=== PATIENT | female | born 1970 | race Two or more races ===

== ENCOUNTER → 2021-07-01 | Outpatient (CLI) | payer OTHER ==
--- NOTE | 2021-07-01 11:27 | RAD ---
EXAMINATION: MRCP W/O CONTRAST. TECHNIQUE: Multiplanar multisequence MRI of the abdomen is performed with MRCP protocol HISTORY: 50 years Female Reason: right upper quadrant abdominal nupur: . . COMPARISON: None. FINDINGS: There is a 3 cm gallbladder stone and other smaller gallstones seen. The CBD is 8 mm in caliber, mini george dilated. There is no significant intrahepatic biliary dilatation. No filling defects to suggest a CBD stone. The pancreatic duct is normal in size. Gross evaluation of the parenchyma and the pancreas, liver, sp isac, adrenals and the kidneys demonstrate no significant abnormality. No evidence of fatty infiltrat ion. Three-dimensional MRCP was performed using maximum intensity projection reconstruction on the same wo rkstation showing minimal dilatation of the CBD with no obstructive lesion or stone identified.. IMPRESSION: 1. Cholelithiasis. 2. Minimal dilatation of the CBD with no obstructive lesion or stone identified. Electronically signed by: Enrique Tolentino MD (07/01/2021 11:25 AM) [id number]
== END ==
LOC: MRI 10:00
PROVIDERS: ATTEND Surgery
DX: K80.20 Calculus of gallbladder without cholecystitis without obstruction (principal)
CPT/HCPCS: 74181

== ENCOUNTER 2021-07-30 09:48 | Observation (INO) | payer OTHER ==
[~2021-07-30] VITALS: Ht 154.9 cm; Wt 72.0 kg
[~2021-07-30 09:48] MED LIST: HEPARIN 1,000 UNIT in IV NORMAL SALINE 1,000 ML for SURG PERIOP IRR ONE; HYDROmorphone 2 MG/ML INJ. IVP PRN; IV RINGERS,LACTATED 1000ML 1,000 ML IV SCH; MORPHINE SULFATE 2 MG/ML INJ. IVP PRN; PROCHLORPERAZINE 10 MG/2 ML VIAL. IVP PRN; fentaNYL PF VIAL 100 MCG/2 ML VIAL IVP PRN
[2021-07-30 10:25] VITALS: BP 147/68
[2021-07-30] MEDS ORDERED: DIVA-53 PO (10:33)
[2021-07-30] MEDS ORDERED: FAMO20TA5 PO (10:33)
[2021-07-30] MEDS ORDERED: CITA40TA6 PO (10:33)
--- NOTE | 2021-07-30 11:03 | PDOC ---
SURGICAL PROGRESS NOTE DATE: 07/30/21 TIME: 11:01 Subjective Pre-Op Note 50 yo F with symptomatic cholelithiasis TO OR for laparoscopic versus open cholecystectomy with cholangiogram. R/R/B/A d/w pt and pt's supportive SO. Risks, including, but not limited to: bleeding, infection, damage to surrounding structures, risk of anesthesia, risk of open. They appear to understand, their questions are answered and they elect to proceed. Office note H&P reviewed and unchanged. Vital Signs Vital Signs Date Time Temp Pulse Resp B/P (MAP) Pulse Ox O2 Delivery O2 Flow Rate FiO2 07/30/21 10:29 97.5 65 17 147/68 97 Room Air 97.5 Justicifation of Admission Dx: Justifications for Admission: Justification of Admission Dx: N/A GIANNI LANDERS MD July 30, 2021 11:03
[2021-07-30] MEDS ORDERED: ROCURONIUM 50 MG/5 ML VIAL. ONE (11:45)
[2021-07-30] MEDS ORDERED: fentaNYL PF VIAL 100 MCG/2 ML VIAL ONE ×2 (11:45→13:47)
[2021-07-30] MEDS ORDERED: ONDANSETRON PF 4 MG/2 ML VIAL. ONE (11:45)
[2021-07-30] MEDS ORDERED: LIDOCAINE 2% PF 5 ML VIAL. ONE (11:45)
[2021-07-30] MEDS ORDERED: PROPOFOL 10 MG/ML (20ML) VIAL. IV ONE (11:45)
[2021-07-30] MEDS ORDERED: DEXAMETHASONE SOD PHOS 4 MG/ML VIAL ONE (11:45)
[2021-07-30] MEDS ORDERED: NEOSTIGMINE METHYLSULFATE 5 MG/5 ML SYRINGE. ONE (12:34)
[2021-07-30] MEDS ORDERED: MIDAZOLAM HCL/PF 2 MG/2 ML VIAL. ONE (12:34)
[2021-07-30] MEDS ORDERED: KETOROLAC 30 MG/ML VIAL. ONE (12:34)
[2021-07-30] MEDS ORDERED: IOHEXOL 300 MG/ML 50 ML VIAL. ONE (12:36)
[2021-07-30] MEDS ORDERED: BUPIVACAINE-EPI 0.5% 30 ML VIAL KIT. ONE (12:36)
[2021-07-30] MEDS ORDERED: GLYCOPYRROLATE 1 MG/5 ML VIAL. ONE (13:32)
[2021-07-30] MEDS ORDERED: BUPIVACAINE-EPI 0.5% 30 ML VIAL KIT. INJ ONE (13:33)
[2021-07-30] MEDS ORDERED: IOHEXOL 300 MG/ML 50 ML VIAL. INT CAT ONE (13:35)
[2021-07-30 14:00] VITALS: BP 136/63
[2021-07-30] MEDS ORDERED: GLUCAGON,HUMAN RECOMBINANT 1 MG/ML VIAL. ONE (14:14)
[2021-07-30] MEDS ORDERED: BISACODYL 10 MG SUPP.RECT. ONE (15:02)
--- NOTE | 2021-07-30 15:06 | RAD ---
Intraoperative cholangiogram dated 07/30/2021 COMPARISON: None. INDICATION: Right upper quadrant pain. Cholecystectomy in OR. FINDINGS: 8 fluoroscopic images submitted. Images show cannulation of the cystic duct with filling the extrahep atic biliary tree. Common bile duct is dilated and there is a small filling defect near the ampullary region. Contrast material extends into proximal small bowel. IMPRESSION: Filling defect at the ampulla, likely choledocholithiasis. Correlate with operative report. Electronically signed by: Tahir Wagner MD (07/30/2021 3:03 PM) GENA
[2021-07-30] MEDS ORDERED: MORPHINE SULFATE 2 MG/ML INJ. IV PRN (15:15)
[2021-07-30] MEDS ORDERED: IV DEXTROSE 5% 250 ML BAG. IV PRN (15:15)
[2021-07-30] MEDS ORDERED: 0.9 % SODIUM CHLORIDE 10 ML DISP.SYRIN. IV PRN (15:15)
[2021-07-30] MEDS ORDERED: NALOXONE 0.4 MG/ML VIAL. IV PRN (15:15)
[2021-07-30] MEDS ORDERED: DEXTROSE 50% 25 GM / 50ML DISP.SYRIN. IV PRN (15:15)
[2021-07-30] MEDS ORDERED: ONDANSETRON PF 4 MG/2 ML VIAL. IVP PRN (15:15)
--- NOTE | 2021-07-30 15:19 | PDOC4 ---
OPERATIVE NOTE Date: Date: July 30, 2021 Pre-Op Diagnosis: Porcelain gallbladder, symptomatic cholelithiasis Post-Op Diagnosis: same, choledocholithiasis Procedure Performed: laparoscopic cholecystectomy with cholangiogram, common bile duct exploration Surgeon: Lobito Landers Anesthesia Type: GETA plus local Blood Loss: 50 Specimans Obtained: gallbladder Findings: large gallstone in gallbladder, edema of wall, normal liver, normal viscera otherwise, choledocholithiasis, cleared. Complications: none Operative Note: After obtaining informed consent, patient was taken to OR, induced under GETA and prepped in the usual fashion. 5 mm ports placed umbilical and RUQ, 12 port placed epigastric, all under laparoscopic guidance. Abdominal cavity was explored and noted as above. Gallbladder was taken off fossa using cautery in dome down fashion. Cystic artery ligated with clips. Cholangiogram demonstrated choledocholithiasis. CBD was explored with 6 johnny and final cholangiogram demonstrated no filling defect and free extravasation into duodenum. Cystic duct ligated with clips and hemolok. Gallbladder placed in bag, delivered and sent to pathology. Copious irrigation. No evidence of bleeding or other pathology. Ports removed without bleeding. Fascia repaired with 0 vicryl. Skin repaired with 4 0 monocryl. Dressing placed. Patient tolerted procedure well and sent to PACU in stable condition. All counts correct. Wound class is 3. GIANNI LANDERS MD July 30, 2021 15:19
[2021-07-30] MEDS: IV RINGERS,LACTATED 1000ML 1,000 ML IV SCH (18:01)
[2021-07-30] MEDS ORDERED: HYDROmorphone 2 MG/ML INJ. IVP PRN (18:30)
[2021-07-30 19:00] VITALS: BP 154/80
[2021-07-30] MEDS: DOCUSATE SODIUM 100 MG CAPSULE. PO SCH (21:00)
[2021-07-30] MEDS: KETOROLAC 15 MG/ML VIAL. IV PRN (21:09)
[2021-07-30 23:06] VITALS: BP 134/81
[2021-07-31] MEDS: IV NORMAL SALINE 1000ML BAG 1,000 ML IV SCH ×2 (00:13→15:15)
[2021-07-31 03:42] VITALS: BP 141/81
[2021-07-31] MEDS: KETOROLAC 15 MG/ML VIAL. IV PRN ×2 (04:29→10:37)
[2021-07-31] MEDS: IV RINGERS,LACTATED 1000ML 1,000 ML IV SCH (04:40)
[2021-07-31 05:23] LABS: BASO % 0 % (0-3); EOS % 0 % (0-3); HEMATOCRIT 42.3 % (36.0-47.0); HEMOGLOBIN 14.4 g/dL (12.0-15.5); LYMPH # 1.2 x10^3/uL (1.0-4.8); LYMPH % 15 % (24-48); MEAN CORPUSCULAR HEMOGLOBIN 32 pg (25-35); MEAN CORPUSCULAR HGB CONC 34 g/dL (31-37); MEAN CORPUSCULAR VOLUME 93 fL (79-100); MONO # 0.6 x10^3/uL (0.0-1.1); MONO % 8 % (0-9); NEUT # 5.9 x10^3/uL (1.8-7.7); NEUT % 77 % (31-73); PLATELET COUNT 244 x10^3/uL (140-400); RED BLOOD COUNT 4.53 x10^6/uL (3.50-5.40); RED CELL DISTRIBUTION WIDTH 12.5 % (11.5-14.5); WHITE BLOOD COUNT 7.6 x10^3/uL (4.0-11.0)
[2021-07-31 05:55] LABS: ALBUMIN 3.3 g/dL (3.4-5.0); CALCIUM 9.1 mg/dL (8.5-10.1); CREATININE 0.8 mg/dL (0.6-1.0); DIRECT BILIRUBIN 0.8 mg/dL (0.0-0.2); GFR 76.2; POTASSIUM 4.8 mmol/L (3.5-5.1); TOTAL BILIRUBIN 1.6 mg/dL (0.2-1.0); TOTAL PROTEIN 6.7 g/dL (6.4-8.2)
[2021-07-31 07:00] VITALS: BP 164/78
[2021-07-31] MEDS: DOCUSATE SODIUM 100 MG CAPSULE. PO SCH (08:34)
[2021-07-31] MEDS: HYDROcodone/APAP 5/325MG 1 TAB TABLET PO PRN ×2 (10:37→16:36)
--- NOTE | 2021-07-31 10:54 | NUR ---
SS following for discharge planning. SS reviewed pt chart and discussed with pt RN. Pt is from home with spouse and is currently on room air. Pt had surgery 07/30/2021. Discharge plan is currently to home when medically ready for discharge. SS will continue to follow for discharge planning.
[2021-07-31 11:00] VITALS: BP 159/74
[2021-07-31] MEDS ORDERED: HYDR-2761 PO (13:39)
--- NOTE | 2021-07-31 13:41 | DISCH ---
DISCHARGE INSTRUCTIONS Condition on Discharge Condition on Discharge: Stable Activity After Discharge Activity Instructions for Disc: Activity as tolerated Lifting Instructions after Dis: No heavy lifting, No pulling or pushing Exercise Instruction after Dis: Progress as tolerated Driving Instructions after Dis: Do not drive today Diet after Discharge Diet after Discharge: Low Fat Wound Incision Care Wound/Incision Care: May get incision wet, No wound care needed Contacting the after DC Call your doctor for: Concerns you may have Follow-Up Follow up with: Dr Malik 2 weeks, call to schedule [phone] Follow Up With: Lab ordered to recheck liver in 1 week SOUMYA THAYER [employer]OR July 31, 2021 13:41
--- NOTE | 2021-07-31 13:47 | PDOC ---
SURGICAL PROGRESS NOTE DATE: 07/31/21 TIME: 13:44 Subjective feels well tolerating clears ambulating Vital Signs Vital Signs Date Time Temp Pulse Resp B/P (MAP) Pulse Ox O2 Delivery O2 Flow Rate FiO2 07/31/21 11:00 98.3 58 20 159/74 (102) 96 Room Air 98.3 07/30/21 20:00 2.0 I&O Intake and Output 07/31/21 07:00 Intake Total 2650 ml Output Total 300 ml Balance 2350 ml IV Total 2650 ml Output Urine Total 250 ml Estimated Blood Loss 50 ml # Voids 2 General: Alert, Oriented X3, Cooperative Abdomen: Soft, Other (lap sites intact ) Labs Laboratory Tests Test 07/30/21 10:12 07/31/21 04:50 POC SARS CoV-2 Antigen Negative (NEGATIVE) White Blood Count 7.6 x10^3/uL (4.0-11.0) Red Blood Count 4.53 x10^6/uL (3.50-5.40) Hemoglobin 14.4 g/dL (12.0-15.5) Hematocrit 42.3 % (36.0-47.0) Mean Corpuscular Volume 93 fL (79-100) Mean Corpuscular Hemoglobin 32 pg (25-35) Mean Corpuscular Hemoglobin Concent 34 g/dL (31-37) Red Cell Distribution Width 12.5 % (11.5-14.5) Platelet Count 244 x10^3/uL (140-400) Neutrophils (%) (Auto) 77 % (31-73) Lymphocytes (%) (Auto) 15 % (24-48) Monocytes (%) (Auto) 8 % (0-9) Eosinophils (%) (Auto) 0 % (0-3) Basophils (%) (Auto) 0 % (0-3) Neutrophils # (Auto) 5.9 x10^3/uL (1.8-7.7) Lymphocytes # (Auto) 1.2 x10^3/uL (1.0-4.8) Monocytes # (Auto) 0.6 x10^3/uL (0.0-1.1) Eosinophils # (Auto) 0.0 x10^3/uL (0.0-0.7) Basophils # (Auto) 0.0 x10^3/uL (0.0-0.2) Sodium Level 138 mmol/L (136-145) Potassium Level 4.8 mmol/L (3.5-5.1) Chloride Level 103 mmol/L (98-107) Carbon Dioxide Level 27 mmol/L (21-32) Anion Gap 8 (6-14) Blood Urea Nitrogen 8 mg/dL (7-20) Creatinine 0.8 mg/dL (0.6-1.0) Estimated GFR (Cockcroft-Gault) 76.2 Glucose Level 98 mg/dL (70-99) Calcium Level 9.1 mg/dL (8.5-10.1) Total Bilirubin 1.6 mg/dL (0.2-1.0) Direct Bilirubin 0.8 mg/dL (0.0-0.2) Aspartate Amino Transf (AST/SGOT) 758 U/L (15-37) Alanine Aminotransferase (ALT/SGPT) 736 U/L (14-59) Alkaline Phosphatase 155 U/L (46-116) Total Protein 6.7 g/dL (6.4-8.2) Albumin 3.3 g/dL (3.4-5.0) Laboratory Tests Test 07/31/21 04:50 White Blood Count 7.6 x10^3/uL (4.0-11.0) Red Blood Count 4.53 x10^6/uL (3.50-5.40) Hemoglobin 14.4 g/dL (12.0-15.5) Hematocrit 42.3 % (36.0-47.0) Mean Corpuscular Volume 93 fL (79-100) Mean Corpuscular Hemoglobin 32 pg (25-35) Mean Corpuscular Hemoglobin Concent 34 g/dL (31-37) Red Cell Distribution Width 12.5 % (11.5-14.5) Platelet Count 244 x10^3/uL (140-400) Neutrophils (%) (Auto) 77 % (31-73) Lymphocytes (%) (Auto) 15 % (24-48) Monocytes (%) (Auto) 8 % (0-9) Eosinophils (%) (Auto) 0 % (0-3) Basophils (%) (Auto) 0 % (0-3) Neutrophils # (Auto) 5.9 x10^3/uL (1.8-7.7) Lymphocytes # (Auto) 1.2 x10^3/uL (1.0-4.8) Monocytes # (Auto) 0.6 x10^3/uL (0.0-1.1) Eosinophils # (Auto) 0.0 x10^3/uL (0.0-0.7) Basophils # (Auto) 0.0 x10^3/uL (0.0-0.2) Sodium Level 138 mmol/L (136-145) Potassium Level 4.8 mmol/L (3.5-5.1) Chloride Level 103 mmol/L (98-107) Carbon Dioxide Level 27 mmol/L (21-32) Anion Gap 8 (6-14) Blood Urea Nitrogen 8 mg/dL (7-20) Creatinine 0.8 mg/dL (0.6-1.0) Estimated GFR (Cockcroft-Gault) 76.2 Glucose Level 98 mg/dL (70-99) Calcium Level 9.1 mg/dL (8.5-10.1) Total Bilirubin 1.6 mg/dL (0.2-1.0) Direct Bilirubin 0.8 mg/dL (0.0-0.2) Aspartate Amino Transf (AST/SGOT) 758 U/L (15-37) Alanine Aminotransferase (ALT/SGPT) 736 U/L (14-59) Alkaline Phosphatase 155 U/L (46-116) Total Protein 6.7 g/dL (6.4-8.2) Albumin 3.3 g/dL (3.4-5.0) Assessment/Plan s/p evelin will DC Home repeat labs 1 week Justicifation of Admission Dx: Justifications for Admission: Justification of Admission Dx: N/A SOUMYA THAYER [employer] REPAIRER July 31, 2021 13:47
[2021-07-31 15:00] VITALS: BP 115/60
--- NOTE | 2021-07-31 18:08 | NUR ---
Discharge Note: Patient was discharged home with self care. Patients IV was discontinued by RN. Patient was given discharge summary/instructions, follow-up and educational material. Patients new prescriptions were sent to patients preferred pharmacy. Patient did not have any further questions or concerns. Patient was taken down to the outpatient via wheelchair with all personal belongings accompanied by NANCY Contreras, where patients was waiting for her to take her home.
--- NOTE | 2021-08-04 16:07 | PATHOLOGY ---
[facility] Accession Number: [id number] . 01 Material submitted: . gallbladder - GALLBLADDER AND CONTENTS . 01 Clinical history: . PORCELAIN GALLBLADDER LAP MIKAEL WITH GRAMS . 02 Diagnosis: Gallbladder, laparoscopic cholecystectomy: - Cholelithiasis. - Chronic cholecystitis. (JPM:maile; 08/04/2021) QMS 08/04/2021 1450 Local . 02 Comment: There is no evidence of malignancy. . 02 Electronically signed: . Black Choudhury MD, Pathologist NPI- [id number] . 01 Gross description: . Fixative: Formalin Labeled: Gallbladder and contents Specimen received: A previously opened gallbladder specimen with a clipped cystic duct margin Dimensions: 8.0 x 3.0 x 1.5 cm (reapproximated) Serosa: Crawford-pink, dusky, glistening, displaying a full thickness incision throughout the entire length of the specimen Adventia: Crawford-white to yellow, shaggy and cauterized Lymph node: Not identified Mucosa: Yellow-green, predominantly trabeculated (body and fundus), and partially velvety (neck), and focally denuded Wall thickness: 0.3-0.5 cm Calculi: There is a single, ovoid, green to dark brown, granular calculus, measuring 3.7 x 2.0 x 2.0 cm, and a few smaller calculi, located in the specimen container. . A1- Manager Home neck, body, fundus, and the cystic duct margin. (JGG; 07/31/2021) JGG/JGG 08/04/2021 1449 Local . 02 Pathologist provided ICD-10: K80.10 . 02 CPT . 812562 Specimen Comment: A courtesy copy of this report has been sent to [phone], [phone] Specimen Comment: [id number] Specimen Comment: Report sent to / DR ALONSO Performed at: [address], [place] [id number] MD Ben Lugo MD Phone: [phone] [facility]: [facility] [address] [place], [place] [id number] MD Black Choudhury MD Phone: [phone]
--- NOTE | 2021-08-12 11:37 | PDOC3 ---
Discharge Summary Visit Information Date of Admission: July 30, 2021 Date of Discharge: July 31, 2021 Admitting Diagnosis: Porcelain gallbladder, symptomatic cholelithiasis Final Diagnosis Porcelain gallbladder, symptomatic cholelithiasis, choledocholithiasis Brief Hospital Course Allergies Allergies Coded Allergies Type Severity Reaction Last Updated Verified No Known Drug Intolerances Allergy Unknown 07/30/21 Yes codeine Adverse Reaction Intermediate Anxiety 07/30/21 Yes morphine Adverse Reaction Intermediate Anxiety 07/30/21 Yes Brief Hospital Course Ms. Bruce is a 50 old female who underwent laparoscopic cholecystectomy with cholangiogram, common bile duct exploration. postoperatively tolerating diet, pain managed, and ready for discharge home. Discharge Information Condition at Discharge: Stable Follow Up: Weeks (2) Disposition/Orders: D/C to Home Scheduled Citalopram Hydrobromide (Citalopram Hbr) 40 Mg Tablet, 40 MG PO DAILY for DEPRESSION, (Reported) Entered as Reported by: VIKRAM WOLF on 07/30/21 103 Last Taken: Unknown Dose on 07/29/21 Last Action: New Order on 07/30/211032 by VIKRAM WOLF Divalproex Sodium (Divalproex Sodium) 500 Mg Tablet.dr, 500 MG PO DAILY for *, (Reported) Entered as Reported by: VIKRAM WOLF on 07/30/21 103 Last Action: New Order on 07/30/211032 by VIKRAM WOLF Famotidine (Famotidine) 20 Mg Tablet, 20 MG PO BID for GERD, (Reported) Entered as Reported by: VIKRAM WOLF on 07/30/21 103 Last Action: New Order on 07/30/211032 by VIKRAM WOLF Scheduled PRN Hydrocodone Bit/Acetaminophen (Hydrocodone-Apap 5-325 ) 1 Tab Tablet, 1 TAB PO PRN Q4HRS PRN for MILD PAIN 1-3, #20 Ref 0 Prescribed by: Soumya Thayer on 07/31/21 1339 Justicifation of Admission Dx: Justifications for Admission: Justification of Admission Dx: N/A SOUMYA THAYER MARINE WELDER August 12, 2021 11:36
== END 2021-07-31 18:00 | disposition home or self-care (01) ==
LOC: SURG 09:48 → INTOOBSV 14:52 → 5 NORTH 14:52
PROVIDERS: ADMIT Surgery; ATTEND Surgery
DX: K80.80 Other cholelithiasis without obstruction (principal); Z20.822 Contact with and (suspected) exposure to COVID-19; K82.8 Other specified diseases of gallbladder; K80.50 Calculus of bile duct without cholangitis or cholecystitis without obstruction
CPT/HCPCS: 36415; 47564; 74300; 74301; 80048; 80076; 85025; 88304; 96374; 96375; 96376; A4209; A4213; A4314; A4930; A6219; C1757; C1887; G0378; G0379; J0690; J1100; J1170; J1610; J1644; J1885; J2250; J2405; J2704; J2710; J3010; J3490; J7030; J7120; Q9967